=== PATIENT | male | born 1965 | race Caucasian/White ===

== ENCOUNTER 2018-05-22 10:02 | Inpatient (IN) | payer OTHER ==
[~2018-05-22] VITALS: Ht 190.5 cm; Wt 89.4 kg
[2018-05-22 10:58] LABS: ABSOLUTE BASOPHIL COUNT 0 /CUMM (0.0-0.2); ABSOLUTE EOSINOPHIL COUNT 0 /CUMM (0.0-0.7); ABSOLUTE GRANULOCYTE CT 14.1 /CUMM (1.4-6.5); ABSOLUTE LYMPH COUNT 1.1 /CUMM (1.2-3.4); ABSOLUTE MONOCYTE COUNT 2.2 /CUMM (0.10-0.60); BASOPHIL % 0 % (0.0-2.0); EOSINOPHIL % 0 % (0-5); GRANULOCYTE % 80.9 % (42.2-75.2); HEMATOCRIT 44.4 % (42-52); MEAN CORPUSCULAR HGB 30.8 PG (27.0-31.0); MEAN CORPUSCULAR HGB CONC 34.6 G/DL (33.0-37.0); MEAN PLATELET VOLUME 8.7 FL (7.4-10.4); PLATELET COUNT 188 /CUMM (130-400); RED BLOOD CELL CT 4.99 /CUMM (4.70-6.10); WHITE BLOOD CELL COUNT 17.4 /CUMM (4.8-10.8)
--- NOTE | 2018-05-22 11:38 | ED GI/GU/ABDOMINAL COMPLAINT ---
History of Present Illness General Chief Complaint: Abdominal Pain/Flank Pain Stated Complaint: ABD PAIN Source: patient Exam Limitations: no limitations Vital Signs & Intake/Output Vital Signs & Intake/Output Vital Signs Date Time Temp Pulse Resp B/P B/P Pulse O2 O2 Flow FiO2 Mean Ox Delivery Rate 05/24 0746 98.2 76 20 134/74 96 05/23 2153 98.2 81 22 126/75 97 Room Air 05/23 1430 97.6 77 18 142/80 98 Room Air ED Intake and Output 05/24 0000 05/23 1200 Intake Total 1979 455 Output Total Balance 1979 455 Intake, IV 1200 395 Intake, Oral 780 60 Number 0 Bowel Movements Allergies Coded Allergies: Penicillins (Intermediate, CHILDHOOD ALLERGY 05/22/18) Reconcile Medications No Known Home Medications Triage Note: PT TO ED C/O LEFT SIDE ABD PAIN X 2 DAYS. DENIES S/S. DENIES N/V/D. PAIN IS WORSE AFTER DRINKING, HASN'T REALLY EATEN. Triage Nurses Notes Reviewed? yes Onset: Abrupt Duration: day(s): (3), constant Timing: recent history No Modifying Factors: none HPI: 52-year-old male comes into the emergency room complaints of left lower abdominal pain for past 3 days. Associated fever. Nausea. Pain is localized to the left lower abdomen. Denies any prior abdominal surgeries. Nothing seems to make it better. Comes in for further evaluation. (Leland Edouard) Past History Travel History Traveled to [place] past 21 day No Medical History Any Pertinent Medical History? none Surgical History Surgical History: non-contributory Psychosocial History What is your primary language Panamanian Tobacco Use: Never used ETOH Use: denies use Illicit Drug Use: denies illicit drug use Family History Hx Contributory? No (Leland Edouard) Review of Systems Review of Systems Constitutional: Reports: no symptoms. EENTM: Reports: no symptoms. Respiratory: Reports: no symptoms. Cardiovascular: Reports: no symptoms. GI: Reports: no symptoms. Genitourinary: Reports: no symptoms. Musculoskeletal: Reports: no symptoms. Skin: Reports: see HPI. Neurological/Psychological: Reports: no symptoms. Hematologic/Endocrine: Reports: no symptoms. Immunologic/Allergic: Reports: no symptoms. All Other Systems: Reviewed and Negative (Leland Edouard) Physical Exam Physical Exam General Appearance: well developed/nourished, no apparent distress, alert Head: atraumatic, normal appearance Eyes: Bilateral: normal appearance. Ears, Nose, Throat, Mouth: moist mucous membrane Neck: normal inspection Respiratory: no respiratory distress Gastrointestinal: soft, tenderness (LLQ) Back: normal inspection Extremities: normal range of motion Neurologic/Psych: awake, alert, oriented x 3 Skin: intact Core Measures ACS in differential dx? No Sepsis Present: No Sepsis Focused Exam Completed? No (Virgilio GONZALEZ,Leland) Progress Differential Diagnosis: appendicitis, diverticulitis, UTI/pyelo Plan of Care: Orders Procedure Date/time Status HEPATIC FUNCTION PANEL 05/24 08 Complete CBC WITHOUT DIFFERENTIAL 05/24 08 Active MAGNESIUM 05/23 07 Complete Lab Add-on Test 05/23 UNK Active Current Medications Sig/Shravan Start time Last Medication Dose Stop Time Status Admin Dextrose/Lactated 1,000 ML Q10H 05/23 0900 AC 05/24 Ringer's 0445 (D5W in Lactated Ringers) Hydromorphone HCl 2 MG Q4 PRN 05/23 0851 AC 05/24 (Dilaudid) 0527 Acetaminophen 1,000 MG Q6H PRN 05/22 1530 AC (Ofirmev) N/A 1 UNIT (No Carrier) Lorazepam 0 Q1P PRN 05/22 1530 AC (Ativan) Ondansetron HCl 4 MG Q8 PRN 05/22 1530 AC 05/23 (Zofran) 1221 Polyethylene Glycol 17 GM DAILY 05/22 1525 AC 05/24 (Miralax) 0829 Senna/Docusate Sodium 2 TAB DAILY 05/22 1524 AC 05/24 (Senokot S) 0829 Enoxaparin Sodium 40 MG DAILY 05/22 1518 AC 05/24 (Lovenox) 0828 Laboratory Tests 05/24/18 0824: Total Bilirubin 0.8, Direct Bilirubin 0.2, AST 21, ALT 39, Alkaline Phosphatase 51, Total Protein 5.8 L, Albumin 3.1 L, CBC w Diff Pending, WBC Pending, RBC Pending, Hgb Pending, Hct Pending, MCV Pending, MCH Pending, MCHC Pending, RDW Pending, Plt Count Pending, MPV Pending Diagnostic Imaging: Viewed by Me: CT Scan. Discussed w/RAD: CT Scan. Radiology Impression: PATIENT: AURELIA AWAN PRESENT AGE: 52 PATIENT ACCOUNT NO: [id number] : 65 LOCATION: [facility] ORDERING PHYSICIAN: Leland GONZALEZ SERVICE DATE: 05/22/18 EXAM TYPE : CAT - CT ABD & PELVIS W IV CONTRAST EXAMINATION: CT ABDOMEN AND PELVIS WITH CONTRAST CLINICAL INFORMATION: Left lower quadrant pain. Rule out diverticulitis. COMPARISON: None. TECHNIQUE: Multidetector CT volumetric acquisition of the abdomen and pelvis was performed after the administration of 95 mL of intravenous Optiray 320. The data set was reformatted in the sagittal and coronal planes and reviewed on an independent workstation. DLP: 377.33 mGy- cm. FINDINGS: LOWER CHEST: Mild dependent atelectasis is seen. LIVER, GALLBLADDER, BILIARY TREE: Liver normal size and attenuation. No focal cystic or solid mass or intra-or extrahepatic ductal dilatation. Hepatic and portal veins patent. Gallbladder partially distended and within normal limits. PANCREAS: Mildly atrophic with fatty infiltration seen, most prominent in the pancreatic head. No ductal dilatation or mass. There is peripancreatic edema and fat stranding seen surrounding the distal pancreatic body and the pancreatic tail and extending to the anterior pararenal fascia and lateral conal fascia, raising the suspicion of acute pancreatitis. Normal enhancement of the pancreatic parenchyma is seen and no focal defined collections are noted. SPLEEN: Normal size and appearance. Splenic vein patent. ADRENAL GLANDS AND KIDNEYS: Adrenal glands normal. Kidneys bilaterally symmetric in size and function. No focal mass , hydronephrosis, nephrolithiasis or perinephric stranding. URETERS AND BLADDER: Ureters decompressed and within normal limits. Bladder partially distended and within normal limits. A thin fibrous remnant of the urachus is seen extending from the bladder dome to the umbilicus. PELVIC ORGANS: Unremarkable. GASTROINTESTINAL TRACT: Normal. Small and large bowel loops decompressed. Appendix in right lower quadrant normal. ABDOMINAL WALL: There is a small fat- containing umbilical hernia. LYMPHOVASCULAR STRUCTURES: Abdominal aorta normal in caliber. No periaortic collections. No abdominal or pelvic adenopathy or free fluid collection. BONES: There is a minimal S-shaped thoracolumbar curvature, possibly positional. Mild multilevel vertebral spurring is seen throughout the thoracolumbar spine. Small bone island is noted in the left femoral neck. IMPRESSION: 1. Above findings are most consistent with acute pancreatitis with peripancreatic edema and stranding seen extending along the anterior pararenal fascia into the lateral conal fascia. No defined collections are seen and no evidence of pancreatic necrosis noted. No focal pancreatic mass or ductal dilatation seen. 2. Gallbladder and biliary tree appear unremarkable on CT scan. No biliary dilatation or calcified gallstones are seen. 3. Mild dependent atelectasis in the lower lobes bilaterally. 4. Small fat-containing umbilical hernia. DICTATED BY: Erinn Cortés MD DATE/TIME DICTATED:05/22/181317 DIESEL ENGINEER:AGNES DATE/TIME TRANSCRIBED:05/22/181317 CONFIDENTIAL, DO NOT COPY WITHOUT APPROPRIATE AUTHORIZATION. <Electronically signed in Other Vendor System> SIGNED BY: Erinn Cortés MD 05/22/18 1330 Initial ED EKG: none (Leland Edouard) Departure Departure Disposition: STILL A PATIENT Condition: Stable Clinical Impression Primary Impression: Acute pancreatitis Referrals: Justine SEVERINO,Pedro Cruz (PCP/Family) Departure Forms: Customer Survey General Discharge Information Prescriptions: Current Visit Scripts No Known Home Medications Admission Note Spoke With: Javier SEVERINO,Alicia Documentation of Exam: Documentation of any treatments & extenuating circumstances including Concerns Regarding Discharge (functional status, medication knowledge or non-compliance, living conditions, etc.) that warrant an admission rather than observation: IV fluids. IV pain control. GI consultation. Etiology unclear. (Leland Edourad) PA/UNIT CONTROL CLERK Co-Sign Statement Statement: ED Attending supervision documentation- x I saw and evaluated the patient. I have also reviewed all the pertinent lab results and diagnostic results. I agree with the findings and the plan of care as documented in the PA's/UNIT CONTROL CLERK's documentation. Patient to be admitted for acute pancreatitis. No acute cardia pulmonary distress. He is resting comfortably. [] I have reviewed the ED Record and agree with the PA's/UNIT CONTROL CLERK's documentation. [] Additions or exceptions (if any) to the PAs/UNIT CONTROL CLERK's note and plan are summarized below: [] (Jb SEVERINO,Clark)
--- NOTE | 2018-05-22 13:30 | CT SCAN REPORT ---
EXAMINATION: CT ABDOMEN AND PELVIS WITH CONTRAST CLINICAL INFORMATION: Left lower quadrant pain. Rule out diverticulitis. COMPARISON: None. TECHNIQUE: Multidetector CT volumetric acquisition of the abdomen and pelvis was performed after the administration of 95 mL of intravenous Optiray 320. The data set was reformatted in the sagittal and coronal planes and reviewed on an independent workstation. DLP: 377.33 mGy-cm. FINDINGS: LOWER CHEST: Mild dependent atelectasis is seen. LIVER, GALLBLADDER, BILIARY TREE: Liver normal size and attenuation. No focal cystic or solid mass or intra-or extrahepatic ductal dilatation. Hepatic and portal veins patent. Gallbladder partially distended and within normal limits. PANCREAS: Mildly atrophic with fatty infiltration seen, most prominent in the pancreatic head. No ductal dilatation or mass. There is peripancreatic edema and fat stranding seen surrounding the distal pancreatic body and the pancreatic tail and extending to the anterior pararenal fascia and lateral conal fascia, raising the suspicion of acute pancreatitis. Normal enhancement of the pancreatic parenchyma is seen and no focal defined collections are noted. SPLEEN: Normal size and appearance. Splenic vein patent. ADRENAL GLANDS AND KIDNEYS: Adrenal glands normal. Kidneys bilaterally symmetric in size and function. No focal mass, hydronephrosis, nephrolithiasis or perinephric stranding. URETERS AND BLADDER: Ureters decompressed and within normal limits. Bladder partially distended and within normal limits. A thin fibrous remnant of the urachus is seen extending from the bladder dome to the umbilicus. PELVIC ORGANS: Unremarkable. GASTROINTESTINAL TRACT: Normal. Small and large bowel loops decompressed. Appendix in right lower quadrant normal. ABDOMINAL WALL: There is a small fat-containing umbilical hernia. LYMPHOVASCULAR STRUCTURES: Abdominal aorta normal in caliber. No periaortic collections. No abdominal or pelvic adenopathy or free fluid collection. BONES: There is a minimal S-shaped thoracolumbar curvature, possibly positional. Mild multilevel vertebral spurring is seen throughout the thoracolumbar spine. Small bone island is noted in the left femoral neck. IMPRESSION: 1. Above findings are most consistent with acute pancreatitis with peripancreatic edema and stranding seen extending along the anterior pararenal fascia into the lateral conal fascia. No defined collections are seen and no evidence of pancreatic necrosis noted. No focal pancreatic mass or ductal dilatation seen. 2. Gallbladder and biliary tree appear unremarkable on CT scan. No biliary dilatation or calcified gallstones are seen. 3. Mild dependent atelectasis in the lower lobes bilaterally. 4. Small fat-containing umbilical hernia.
--- NOTE | 2018-05-22 14:06 | History & Physical ---
Osorio Linder 05/22/18 1405: General Information and HPI MD Statement: I have seen and personally examined AURELIA AWAN and documented this H&P. The patient is a 52 year old M who presented with a patient stated chief complaint of []. Source of Information: patient, family, old records History of Present Illness: Patient is a 52 year old male with no significant PMH except HLD came to the ER with an abdominal pain, vomitting . The pain started suddenly on sunday, 05/13 intensity, stabbing in nature more in the LLQ, not related to any food intake . He has an associated with vomitting and he hasnt been able to keep anything down. H eonly drinks socially and his last drink was 3-4 weeks ago. denies diarrhea, Blood in stools. Allergies/Medications Allergies: Coded Allergies: Penicillins (Intermediate, CHILDHOOD ALLERGY 05/22/18) Home Med list No Known Home Medications Past History Travel History Traveled to [place] past 21 day No Surgical History Surgical History: non-contributory Past Family/Social History Psychosocial History ETOH Use: denies use Illicit Drug Use: denies illicit drug use Review of Systems Review of Systems Constitutional: Reports: see HPI. Exam & Diagnostic Data Last 24 Hrs of Vital Signs/I&O Vital Signs Date Time Temp Pulse Resp B/P B/P Pulse O2 O2 Flow FiO2 Mean Ox Delivery Rate 05/22 2043 98.5 94 18 162/83 98 Room Air 05/22 1708 99.6 81 15 136/68 96 Room Air Room Air 05/22 1156 98 Room Air 05/22 1129 100 144/90 05/22 1011 99.0 94 20 133/82 97 Room Air Intake & Output 05/22 1600 05/22 0800 05/22 0000 Intake Total Output Total Balance Patient 195 lb Weight Weight Reported by Patient Measurement Method Physical Exam General Appearance Alert, Oriented X3, Cooperative, No Acute Distress Cardiovascular Regular Rate, No Murmurs Lungs Clear to Auscultation, Normal Air Movement Abdomen Soft, No Hepatospenomegaly, No Masses, LLQ tendernesss present. Bowel sounds heard, no distension Assessment/Plan Assessment: This is a 52 y m with PMH of HLD, presented to ER with an abodominal pain in LLQ , sudden in on\set, not associuated with any food intake . The patient denies any h/o alcohol consumption. Lipase mildly elevated and CT abd- suggestive of acute pancreatitis. A/P Acute pancreatitis Impending alcohol withdrawl Plan- IVF , pain meds, zofran -ATivan PRN for POSSSIBle Alcohol withdrawl - f/u BEP, hep panel, CBC -NPO - CIWA scoring As Ranked By This Provider Problem List: 1. Acute pancreatitis Core Measures/Misc (05/20) Acute Coronary Syndrome ACS Diagnosis: No Congestive Heart Failure Congestive Heart Failure Diagnosis No Cerebrovascular Accident CVA/TIA Diagnosis: No VTE (View Protocol) VTE Risk Factors Other No Mechanical VTE Prophylaxis d/t Other No VTE Pharm Prophylaxis d/t Other Sepsis (View protocol) Sepsis Present: No If YES complete Sepsis Event Note If YES complete Sepsis Event Note Milad SEVERINO,[facility] 05/22/18 1409: Core Measures/Misc (05/20) Sepsis (View protocol) If YES complete Sepsis Event Note If YES complete Sepsis Event Note Resident Review Statement Resident Statement: examined this patient, discussed with research program intern, agreed with research program intern Other Findings: The patient is a 52-year-old gentleman with no past medical history. He is presented to [place] ED for evaluation of left abdominal pain ongoing for past 2 days subjective fevers and nausea. No abdominal pain started on Sunday 8 months mostly concentrated in the left lower side of the abdomen. It is a sharp stabbing pain 9 out of 10 at most. Nonradiating, reports several episodes of bilious vomiting which make been somewhat relieved the pain. It is worsened by sitting up. Patient denies any alcohol intake last drink was 3-4 weeks ago. Denies any trauma. Review of system is essentially negative. See research program intern's HPI for more information -Vitals on presentation low-grade fever 99 tachycardic up to 100 -Physical examination findings positive for lower abdominal pain S1-S2 lungs clear bowel sounds present alert oriented 3 -Laboratory findings significant for leukocytosis up to 17.4 no bands total bilirubin elevated at 1.8 lipase elevated to 4.5. -Imaging findings consistent with pancreatitis. No definite connection seen no evidence of necrosis noted. Gallbladder and biliary tree was unremarkable gallstones were not appreciated Patient is being admitted to general medicine floor for treatment and evaluation of following conditions #Acute pancreatitis Patient's symptoms of abd pain though not characteristis, leukocytosis and imaging finding along with elevated lipase and elevated total bilirubin of 1.8 are consistent with acute pancreatitis. Two most common causes in [place] are alcohol abuse disorder and gallstones. -Admit to general medicine floor -Vitals every shift -IV hydration with Ringer lactate -N.p.o. we will advance diet as soon as patient tolerates -Symptomatic management for nausea with Zofran and pain management with Dilaudid -We will check an alcohol level, CIWA protocol if withdraws N.p.o./DVT prophylaxis with Lovenox/full code Jacquelyn Murphy MD 05/22/18 1840: Core Measures/Misc (05/20) Sepsis (View protocol) If YES complete Sepsis Event Note If YES complete Sepsis Event Note Attending MD Review Statement Attending Statement Attending MD Statement: examined this patient, discuss w/resident/PA/SERVICE TRANSFORMER REPAIR SUPERVISOR, agreed w/resident/PA/SERVICE TRANSFORMER REPAIR SUPERVISOR, reviewed EMR data (avail), discussed with nursing, discussed with case mgmt, amended to note Attending Assessment/Plan: Patient seen and examined. presentrs with complaints of abdominal pain and found to havwe evidence of pancreatitis on laboratory data and imaging. He denies significant alchohol use and there is no evidence of gall stones on imaging. Also no suggestion of malignancy was raised. He is not on any potentially offending medications. In any case will manage him conservatively for his idiopathic acute pancreatitis with bowel rest, IV hydration and pain control. Despte his reported history of limited alcohol use, will monitor closely for alcohol withdrawal symptoms. Once stable for discharge will refer t the out- patient GI service for further work p of etiologies of pancreatitis.
--- NOTE | 2018-05-22 15:32 | PN- Student ---
Subjective Subjective: CC: abdominal pain x 2 days Source: patient Reliability: patient is a reliable historian HPI: Mr. Peace is a 52 y/o male with past medical history of hyperlipidema ( controlled with diet only) who presents for evaluation of left-sided abdominal pain that began two days ago. There was no inciting incident and no trauma. He describes the pain as stabbing in nature and rates it as 9/10 in severity. The patient has had several episodes of bilious vomiting which seems to improve the pain. Pain is worse with eating and drinking, and sitting up also exacerbates the pain. The pain is mainly in the left side of the abdomen and does not radiate. He admits to subjective fevers and chills and denies history of gallstones or alcohol abuse. ROS: see HPI, otherwise negative Medical history: hyperlipidemia Home medications: none Allergies: none Family history: dad with diabetes Social history: patient works and is active, drinks alcohol socially (last drink 3-4 weeks ago), denies tobacco use, denies drug use Objective Objective: Vitals: temperature 99.0F, pulse 94, respiratory rate 20, blood pressure 133/82, oxygen saturation 97% on RA General: pleasant male lying in gurney in no acute distress CV: RRR, no murmurs, rubs, or gallops appreciated Pulmonary: CTA bilaterally Abdomen: abdomen is soft and nondistended, moderate LLQ tenderness to palpation, bowel sounds present Neuro: CN II-XII grossly intact, A&O x 3 Psych: normal affect and concentration Results Results: Laboratory Tests 05/22/18 1038: Anion Gap 11, Estimated GFR > 60, BUN/Creatinine Ratio 13.3, Glucose 116 H, Calcium 9.3, Total Bilirubin 1.8 H, AST 27, ALT 43, Alkaline Phosphatase 57, Total Protein 7.4, Albumin 4.5, Globulin 2.9, Albumin/Globulin Ratio 1.6, Lipase 451 H, CBC w Diff NO MAN DIFF REQ, RBC 4.99, MCV 89.0, MCH 30.8, MCHC 34.6, RDW 13.0, MPV 8.7, Gran % 80.9 H, Lymphocytes % 6.5 L, Monocytes % 12.6 H, Eosinophils % 0, Basophils % 0, Absolute Granulocytes 14.1 H, Absolute Lymphocytes 1.1 L, Absolute Monocytes 2.2 H, Absolute Eosinophils 0, Absolute Basophils 0, Serum Alcohol Pending CT abdomen/pelvis with contrast: 1. Above findings are most consistent with acute pancreatitis with peripancreatic edema and stranding seen extending along the anterior pararenal fascia into the lateral conal fascia. No defined collections are seen and no evidence of pancreatic necrosis noted. No focal pancreatic mass or ductal dilatation seen. 2. Gallbladder and biliary tree appear unremarkable on CT scan. No biliary dilatation or calcified gallstones are seen. 3. Mild dependent atelectasis in the lower lobes bilaterally. 4. Small fat-containing umbilical hernia. Assessment/Plan Assessment: 52 y/o male with past medical history of hyperlipidemia presents for evaluation of LLQ pain that began two days ago. Patient has leukocytosis at 17.4 and elevated lipase at 451. He has a low grade temperature at 99.6F and tachycardia up to 100 in the ED. The patient is hemodynamically stable. Although the patient 's symptoms are not classical for pancreatitis (no epigastric pain, no radiation of pain to the back), CT imaging and laboratory workup are consistent with acute pancreatitis. Plan: #Acute pancreatitis: the patient denies alcohol abuse and has no history of gallstones. Gallstones were not seen on CT imaging. Etiology of the pancreatitis is unclear at this time. -Admit to general medicine service -Obtain RUQ US, as this test is more sensitive for gallstones than CT -Check ETOH level -[facility] protocol if patient has withdrawal symptoms -IV hydration with lactated ringers at 150 mLs/hour -Analgesia with dilaudid 1 mg Q4 IV PRN and acetaminophen 1000 mg Q6 PRN -Toradol and morphine given in the ED, both discontinued -Nausea control with ondansetron 4 mg Q8 PRN -Check vitals #Diet -NPO -Advance diet as tolerated #DVT prophylaxis -Enoxaparin 40 mg subcutaneous -ALPs #Code status -Full code
--- NOTE | 2018-05-22 18:48 | Admission Certification ---
Admission Certification Certification Statement - As attending physician, I certify that at the time of - admission, based on clinical presentation, severity of - symptoms, need for further diagnostic testing and - therapeutic interventions, and risk of adverse outcomes - without in-hospital treatment, in my clinical assessment, - this patient requires an acute hospital stay for a minimum - of two nights or longer. I have also considered psychsocial - factors such as support system, advanced age, financial - issues, cognitive issues, and failed out-patient treatments, - past re-admission history, safety of patient, and lack of - compliance as applicable. Specific rationale supporting this admission is: Patient requires hospitalization for management of pancreatitis
[2018-05-22 22:00] VITALS: BP 135/83
[2018-05-22 23:03] VITALS: BP 135/83
[2018-05-23 07:07] VITALS: BP 120/70
[2018-05-23 07:10] VITALS: BP 152/94
[2018-05-23 08:00] VITALS: BP 152/94
[2018-05-23 08:29] LABS: ABSOLUTE BASOPHIL COUNT 0 /CUMM (0.0-0.2); ABSOLUTE EOSINOPHIL COUNT 0 /CUMM (0.0-0.7); ABSOLUTE MONOCYTE COUNT 2.1 /CUMM (0.10-0.60); EOSINOPHIL % 0.2 % (0-5)
[2018-05-23 08:44] LABS: ABSOLUTE GRANULOCYTE CT 12.9 /CUMM (1.4-6.5); ABSOLUTE LYMPH COUNT 1.2 /CUMM (1.2-3.4); BASOPHIL % 0 % (0.0-2.0); GRANULOCYTE % 79.4 % (42.2-75.2); MEAN CORPUSCULAR HGB 30.5 PG (27.0-31.0); MEAN CORPUSCULAR HGB CONC 34.3 G/DL (33.0-37.0); MEAN CORPUSCULAR VOLUME 88.9 FL (80.0-94.0); MEAN PLATELET VOLUME 9.5 FL (7.4-10.4); PLATELET COUNT 152 /CUMM (130-400); RBC DISTRIBUTION WIDTH 12.8 % (11.5-14.5); RED BLOOD CELL CT 4.37 /CUMM (4.70-6.10); WHITE BLOOD CELL COUNT 16.2 /CUMM (4.8-10.8)
[2018-05-23 08:58] LABS: HEMATOCRIT 38.8 % (42-52)
--- NOTE | 2018-05-23 09:44 | PN- Housestaff ---
Osorio Linder 05/23/18 0943: Subjective Follow-up For: acute pancreatitis Subjective: Patient was seen and examined this morning. He could not get sleep since he was tossing and turning and continues to have pain. Nausea and vomitting have subsided. but diffuse vague pain all over. Review of Systems Constitutional: Reports: see HPI. Objective Last 24 Hrs of Vital Signs/I&O Vital Signs Date Time Temp Pulse Resp B/P B/P Pulse O2 O2 Flow FiO2 Mean Ox Delivery Rate 05/23 1430 97.6 77 18 142/80 98 Room Air 05/23 1000 97.5 81 20 152/94 05/23 0800 97.5 81 20 152/94 05/23 0710 97.5 81 20 152/94 97 05/23 0707 987.0 70 19 120/70 95 05/22 2303 98.5 88 19 135/83 98 Room Air 05/22 2200 98.5 88 19 135/83 Intake & Output 05/23 1600 05/23 0800 05/23 0000 Intake Total 800 455 Output Total Balance 800 455 Intake, IV 500 395 Intake, Oral 300 60 Number 0 Bowel Movements Patient 198 lb Weight Weight Bed scale Measurement Method Physical Exam General Appearance: Alert, Oriented X3, Cooperative, No Acute Distress Cardiovascular: Regular Rate, No Murmurs Lungs: Clear to Auscultation, Normal Air Movement Abdomen: vague abdominal tenderness Extremities: No Clubbing, No Cyanosis, No Edema, Normal Pulses, No Tenderness/ Swelling Current Medications: Current Medications Sig/Shravan Start time Last Medication Dose Route Stop Time Status Admin Acetaminophen 1,000 MG Q6H PRN 05/22 1530 N/A 1 UNIT IV Dextrose/Lactated 1,000 ML Q10H 05/23 0900 AC 05/23 Ringer's IV 1938 Dextrose/Sodium 1,000 ML Q13H 05/23 0815 DC Chloride IV Enoxaparin Sodium 40 MG DAILY 05/22 1518 AC 05/23 SC 0808 Hydromorphone HCl 2 MG Q4 PRN 05/23 0851 AC 05/23 IV 1218 Hydromorphone HCl 1 MG Q4 PRN 05/22 1530 DC 05/23 IV 0808 Lactated Ringer's 1,000 ML ONCE ONE 05/22 1815 DC IV 05/23 0054 Lactated Ringer's 1,000 ML ONCE ONE 05/22 1530 DC IV 05/22 2209 Lactated Ringer's 1,000 ML ONCE ONE 05/22 1430 DC 05/22 IV 05/22 2109 1432 Lorazepam 0 Q1P PRN 05/22 1530 AC IV Ondansetron HCl 4 MG Q8 PRN 05/22 1530 AC 05/23 PO 1221 Polyethylene Glycol 17 GM DAILY 05/22 1525 AC PO Potassium Chloride 40 MEQ ONCE ONE 05/23 1600 DC 05/23 PO 05/23 1601 1752 Senna/Docusate Sodium 2 TAB DAILY 05/22 1524 AC 05/23 PO 0808 Trimethobenzamide HCl 200 MG ONCE ONE 05/23 1730 DC 05/23 IM 05/23 1731 1726 Trimethobenzamide HCl 0 .STK-MED ONE 05/23 1726 DC IM Last 24 Hrs of Lab/Arley Results Last 24 Hrs of Labs/Mics: Laboratory Tests 05/23/18 0705: Anion Gap 8, Estimated GFR > 60, BUN/Creatinine Ratio 17.5, Magnesium 2.0, Total Bilirubin 1.8 H, Direct Bilirubin 0.2, AST 19, ALT 33, Alkaline Phosphatase 52, Total Protein 6.7, Albumin 3.7, Triglycerides 98, Cholesterol 231 H, LDL Cholesterol, Calc 164 H, HDL Cholesterol 48, Cholesterol/HDL Ratio 5 H, CBC w Diff NO MAN DIFF REQ, RBC 4.37 L, MCV 88.9, MCH 30.5, MCHC 34.3, RDW 12.8, MPV 9.5, Gran % 79.4 H, Lymphocytes % 7.5 L, Monocytes % 12.9 H, Eosinophils % 0.2, Basophils % 0, Absolute Granulocytes 12.9 H, Absolute Lymphocytes 1.2, Absolute Monocytes 2.1 H, Absolute Eosinophils 0, Absolute Basophils 0 Assessment/Plan Assessment: This is a 52 y m with PMH of HLD, presented to ER with an abodominal pain in LLQ , sudden in on\set, not associuated with any food intake . The patient denies any h/o alcohol consumption. Lipase mildly elevated and CT abd- suggestive of acute pancreatitis. A/P Acute pancreatitis Impending alcohol withdrawl Plan- -IVF rinager lactate -pain meds, zofran -treat symptomatically -ATivan PRN for POSSSIBle Alcohol withdrawl -f/u BEP, hep panel, CBC -NPO -CIWA scoring - Problem List: 1. Acute pancreatitis Pain Ratin Pain Location: absomen Pain Goal: Remain pain free (as discussed) Pain Plan: as discussed Tomorrow's Labs & Rationales: dalia Murphy MD,Jacquelyn 05/23/18 1102: Attending MD Review Statement Attending Statement Attending MD Statement: examined this patient, discuss w/resident/PA/AREA MANAGER, agreed w/resident/PA/AREA MANAGER, reviewed EMR data (avail), discussed with nursing, discussed with case mgmt, amended to note Attending Assessment/Plan: Patient seen and examined. Resting comfortably and not in acute distress. Continues to report abdominal discomfort but admits it is improved compared to presentation. Afebrile. Hemodynamically stable. Transaminase levels remain within normal limits. Triglyceride level is normal. Patient admits to more recent alcohol use but still insists that intake is only minimal. His pancreatitis is likely alcohol-related however we do recommend follow-up with gastroenterology service as an outpatient for further workup as indicated. Fortunately he is not having any significant signs of alcohol withdrawal. He has not required any benzodiazepine therapy at present. Leukocytosis is trending down. Most likely reactive. No clinical evidence of an infectious process at present. We will advance diet today. If he tolerates will advance further and anticipate discharging patient home tomorrow.
[2018-05-23 10:00] VITALS: BP 152/94
[2018-05-23 14:30] VITALS: BP 142/80
[2018-05-23 21:53] VITALS: BP 126/75
[2018-05-24 07:46] VITALS: BP 134/74
--- NOTE | 2018-05-24 09:39 | PN- Housestaff ---
Osorio Linder 05/24/18 0939: Subjective Follow-up For: Acute pancreatitis Subjective: Patient was seen and examined this morning. He was a little drowsy due to the pain medications. But he continued having vague abdominal pain. And discomfort. He also complains of nausea, that aggravates on changing position. And relates this condition to stress at work. Denies drinking alcohol no matter what Review of Systems Constitutional: Reports: see HPI. Objective Last 24 Hrs of Vital Signs/I&O Vital Signs Date Time Temp Pulse Resp B/P B/P Pulse O2 O2 Flow FiO2 Mean Ox Delivery Rate 05/24 0746 98.2 76 20 134/74 96 05/23 2153 98.2 81 22 126/75 97 Room Air 05/23 1430 97.6 77 18 142/80 98 Room Air Intake & Output 05/24 1600 05/24 0800 05/24 0000 Intake Total 920 1180 Output Total Balance 920 1180 Intake, IV 800 700 Intake, Oral 120 480 Physical Exam General Appearance: Alert, Oriented X3, Cooperative, No Acute Distress Cardiovascular: Regular Rate, No Murmurs Lungs: Clear to Auscultation, Normal Air Movement Abdomen: Normal Bowel Sounds, Soft, No Hepatospenomegaly, No Masses, tenderness diffuse in all areas . more in the right quadrant Neurological: Normal Speech, Strength at 5/5 X4 Ext, Normal Tone, Sensation Intact Extremities: No Clubbing, No Cyanosis, No Edema, Normal Pulses, No Tenderness/ Swelling Current Medications: Current Medications Sig/Shravan Start time Last Medication Dose Route Stop Time Status Admin Acetaminophen 1,000 MG Q6H PRN 05/22 1530 AC N/A 1 UNIT IV Dextrose/Lactated 1,000 ML Q10H 05/23 0900 AC 05/24 Ringer's IV 0445 Enoxaparin Sodium 40 MG DAILY 05/22 1518 AC 05/24 SC 0828 Hydromorphone HCl 2 MG Q4 PRN 05/23 0851 AC 05/24 IV 0527 Lorazepam 0 Q1P PRN 05/22 1530 AC IV Ondansetron HCl 4 MG Q8 PRN 05/22 1530 AC 05/23 PO 1221 Polyethylene Glycol 17 GM DAILY 05/22 1525 AC 05/24 PO 0829 Potassium Chloride 40 MEQ ONCE ONE 05/23 1600 DC 05/23 PO 05/23 1601 1752 Senna/Docusate Sodium 2 TAB DAILY 05/22 1524 AC 05/24 PO 0829 Trimethobenzamide HCl 200 MG ONCE ONE 05/23 1730 DC 05/23 IM 05/23 1731 1726 Trimethobenzamide HCl 0 .STK-MED ONE 05/23 1726 DC IM Last 24 Hrs of Lab/Arley Results Last 24 Hrs of Labs/Mics: Laboratory Tests 05/24/18 0824: Total Bilirubin 0.8, Direct Bilirubin 0.2, AST 21, ALT 39, Alkaline Phosphatase 51, Total Protein 5.8 L, Albumin 3.1 L, CBC w Diff Pending, WBC Pending, RBC Pending, Hgb Pending, Hct Pending, MCV Pending, MCH Pending, MCHC Pending, RDW Pending, Plt Count Pending, MPV Pending Assessment/Plan Assessment: Assessment: This is a 52 y m with PMH of HLD, presented to ER with an abodominal pain in LLQ , sudden in on\set, not associuated with any food intake . The patient denies any h/o alcohol consumption. Lipase mildly elevated and CT abd- suggestive of acute pancreatitis. A/P Acute pancreatitis Impending alcohol withdrawl Plan- -IVF ringer lactate - payient is not able to tolerate diet, buit on clear liquids -pain meds- dilaudid, zofran -treat symptomatically POSSSIBle Alcohol withdrawl expected s no other cause of pancreatitis is found, although serum alcohol has been less than [address] bdomen negative fpr cholilithiasis or choledocolithiaiss - Lipid profile is only mildly eleavted -f/u BEP, hep panel, CBC -NPO -CIWA scoring -Leukocytosis is resolving -Total bilirubin back to normal Problem List: 1. Acute pancreatitis Pain Ratin Pain Location: abdomen Pain Goal: Remain pain free Pain Plan: none Tomorrow's Labs & Rationales: cbc. Katherine SEVERINO,Jacquelyn 05/24/18 1051: Attending MD Review Statement Attending Statement Attending MD Statement: examined this patient, discuss w/resident/PA/OIL BURNER TECHNICIAN, agreed w/resident/PA/OIL BURNER TECHNICIAN, reviewed EMR data (avail), discussed with nursing, discussed with case mgmt, amended to note Attending Assessment/Plan: Nursing staff and house staff reported today that patient continues to complain of significant abdominal pain and is still requesting analgesic therapy. When we went into rounds today he was sleeping soundly. When he tried to wake him the rounds will continue to sleep comfortably. Decision was made to reevaluate him later in the day. We will continue his current regimen. Once he is able to tolerate meals adequately diet may be advanced with consideration for discharge. Nursing staff however report that he continues to complain of nausea and has poor oral intake. We will continue to monitor for improvement of his pancreatitis. Etiology of his pancreatitis remains unclear. He denies significant alcohol use. He has no hypercalcemia or hypertriglyceridemia. No evidence of biliary stones. He is not on any medications at home. He has no evidence of an infectious process. His elevated white count appears to be reactive in nature. And recommend he follow-up with the GI service as an outpatient. He has no clinical features suggestive of vasculitis. Other etiologies to consider include autoimmune pancreatitis/celiac disease/ pancreatic divisum. Will consider inpatient GI evaluation if his pain does not improve with continued conservative management.
[2018-05-24 11:08] LABS: ABSOLUTE BASOPHIL COUNT 0 /CUMM (0.0-0.2); ABSOLUTE EOSINOPHIL COUNT 0 /CUMM (0.0-0.7); ABSOLUTE GRANULOCYTE CT 10.4 /CUMM (1.4-6.5); ABSOLUTE LYMPH COUNT 0.9 /CUMM (1.2-3.4); ABSOLUTE MONOCYTE COUNT 1.2 /CUMM (0.10-0.60); BASOPHIL % 0 % (0.0-2.0); EOSINOPHIL % 0.4 % (0-5); GRANULOCYTE % 82.6 % (42.2-75.2); HEMATOCRIT 36.3 % (42-52); MEAN CORPUSCULAR HGB 30.6 PG (27.0-31.0); MEAN CORPUSCULAR HGB CONC 33.7 G/DL (33.0-37.0); MEAN CORPUSCULAR VOLUME 90.8 FL (80.0-94.0); MEAN PLATELET VOLUME 9.2 FL (7.4-10.4); PLATELET COUNT 163 /CUMM (130-400); RBC DISTRIBUTION WIDTH 12.9 % (11.5-14.5); RED BLOOD CELL CT 3.99 /CUMM (4.70-6.10); WHITE BLOOD CELL COUNT 12.6 /CUMM (4.8-10.8)
[2018-05-24 12:00] VITALS: BP 128/72
[2018-05-24 14:00] VITALS: BP 139/79
--- NOTE | 2018-05-24 17:34 | Patient Discharge Instructions ---
Discharge Instructions General Discharge Information You were seen/treated for: acute pancreatitis Special Instructions: Please follow up with PCP within 1 week of disacharge Acute Coronary Syndrome Inclusion Criteria At DC or during hospital stay patient has or had the following: Discharge Core Measures Meds if any: Prescribed or Continued at Discharge Meds if any: NOT Prescribed or Continued at Discharge Congestive Heart Failure Inclusion Criteria At DC or during hospital stay patient has or had the following: Discharge Core Measures Meds if any: Prescribed or Continued at Discharge Meds if any: NOT Prescribed or Continued at Discharge Cerebrovascular accident Inclusion Criteria At DC or during hospital stay patient has or had the following: CVA/TIA Diagnosis No Discharge Core Measures Meds if any: Prescribed or Continued at Discharge Meds if any: NOT Prescribed or Continued at Discharge Venous thromboembolism Discharge Core Measures - Per Current guidelines, there needs to be overlap - treatment for the first 5 days of Warfarin therapy. - If discharged on Warfarin prior to 5 days of - overlap therapy, the patient will need to be - assessed for post discharge needs including - *Post discharge parental anticoagulation - *Warfarin and/or parental anticoagulation education - *Follow up date to check INR post discharge Meds if any: Prescribed or Continued at Discharge Note: Overlap Therapy is Warfarin and Anticoagulant Meds if any: NOT Prescribed or Continued at Discharge
[2018-05-24 20:34] VITALS: BP 140/76
--- NOTE | 2018-05-24 20:58 | ULTRASOUND REPORT ---
EXAMINATION: ABDOMINAL ULTRASOUND LIMITED CLINICAL INFORMATION: Abdominal pain. Concern for pancreatitis. COMPARISON: 05/22/2018. TECHNIQUE: Real-time imaging of the right upper quadrant abdominal viscera. FINDINGS: PANCREAS: The pancreas is obscured due to overlying bowel gas. No fluid collections are demonstrable. LIVER: The liver is of normal size and echogenicity without focal lesions nor intrahepatic biliary ductal dilation. GALLBLADDER: Normal. The gallbladder is physiologically distended without evidence of stones, sludge, polyps, wall thickening or pericholecystic fluid. COMMON BILE DUCT: Normal in caliber measuring 0.4 cm in diameter. RIGHT KIDNEY: Normal. No hydronephrosis. No renal calculi or focal parenchymal lesions. The kidney measures 10.1 cm in maximum dimension. FREE FLUID: None. IMPRESSION: Limited exam as the pancreas is obscured due to overlying bowel gas. No free fluid. No drainable fluid collections.
[2018-05-25 01:08] VITALS: BP 166/96
[2018-05-25 06:51] VITALS: BP 135/78
--- NOTE | 2018-05-25 09:17 | PN- Att Addend ---
Attending Addendum Attending Brief Note Patient seen and examined. Was sleeping comfortably. Not in any acute distress. Nursing staff reports that he has not been tolerating his clear liquid diet. Patient admits to not tolerating diet states that he threw up after attempting liquids yesterday. He however continues to attribute his symptoms to stress. He is eager to go home today. He continues to report abdominal discomfort but states that it is tolerable. He received only 3 mg of Dilaudid yesterday after stating that Tylenol did not help him. On examination does not appear to be in acute distress. Abdomen soft nontender with normal bowel sounds. No palpable masses. Recommendations: -Advance diet today. If patient tolerates and may be discharged home to follow- up with the gastroenterology service as an outpatient. -If he continues to be nauseous and not tolerating meals will recommend evaluation by the gastroenterology service here in the hospital. -Continue antiemetic therapy with Zofran.
[2018-05-25] MEDS ORDERED: PERCOCET 5-3251 EACH PO (12:01)
[2018-05-25 14:23] VITALS: BP 142/84
--- NOTE | 2018-05-25 18:53 | Discharge Summary ---
Visit Information Visit Dates Admission Date: 05/22/18 Discharge Date: 05/25/18 Hospital Course Course Attending Physician: Jacquelyn Murphy MD Primary Care Physician: Pedro Fletcher MD Hospital Course: This is a 52 y m with PMH of HLD, presented to ER with an abodominal pain in LLQ , sudden in on\set, not associuated with any food intake . The patient denies any h/o alcohol consumption. Lipase mildly elevated and CT abd- suggestive of acute pancreatitis. A/P -Acute pancreatitis -Acute transmnitis Plan- -IVF ringer lactate given - Patient was made NPO and after 24- 48 hrs advanced the diet -pain meds- dilaudid, zofran -treated symptomatically -no cause of pancreatitis is found, serum alcohol has been less than 10 on admission. -ct bdomen negative fpr cholilithiasis or choledocolithiaiss -CIWA scoring for abntecipated alcohol withdrawl waas 0 -Leukocytosis is resolved in 24 hrs -Total bilirubin back to normal Allergies: Coded Allergies: Penicillins (Intermediate, CHILDHOOD ALLERGY 05/22/18) Disposition Summary Disposition Principal Diagnosis: Acute Pancreatitis Additional Diagnosis: none Discharge Disposition: home or self care Discharge Instructions General Discharge Information Code Status: Full Code Patient's Diet: regular Patient's Activity: as tolerated Follow-Up Instructions/Appts: Please follow up with PCP within 1 week of discharge Medications at Discharge Discharge Medications: Start taking the following new medications: Oxycodone HCl/Acetaminophen (Percocet 5-325 MG Tablet) 5 MG-325 MG TABLET 1 Tablet ORAL EVERY SIX HOURS Qty = 5 No Refills Instructions: . Comments: NOT GIVEN IN HOSPITAL Copies To: Pedro Fletcher MD Attending MD Review Statement Documenting Attending: Jacquelyn Murphy MD Other Findings: Discharged in stable condition.
[2018-05-26] MEDS ORDERED: PERCOCET 5-3251 EACH PO (20:32)
== END 2018-05-25 18:55 | DRG 440 ==
LOC: DELPENDDIS → ERH 10:02 → ERHI 13:59 → 2NB 13:59 → ENRESERV 19:52 → ENTRNSPT 20:58 → 2NB 21:15 → CMPTRNSPT 21:24 → ENPENDDIS 05-25 13:42 → 2NB 05-25 18:55
PROVIDERS: Internal Medicine; Physician Assistant Medical; Student in an Organized Health Care Education/Training Program
DX: K85.90 Acute pancreatitis without necrosis or infection, unspecified (principal); E78.5 Hyperlipidemia, unspecified; Z88.0 Allergy status to penicillin
CPT/HCPCS: 2NBP; 36592; 74177; 82436; 96374; 96375; G0480; J0131; J1650; J1885; J3101; J3250; J7042; J7120